=== PATIENT | female | born 1955 | race African-American/Black ===

== ENCOUNTER → 2020-07-08 | Outpatient (CLI) | payer MEDICARE, MEDICAID ==
[~2020-07-08] MED LIST: ASPI-1497 PO; ATOR20TA PO; BUDE6HFA INH; FLUT16SP15 BOTHNSTRLS; FLUT1DIS3 IH; FURO-152 PO; METF-414 PO; POTA10TA11 PO; VALS160T28 PO
== END | disposition home or self-care (01) ==
LOC: LAB 11:16
PROVIDERS: ATTEND Ophthalmology
DX: Z01.812 Encounter for preprocedural laboratory examination (principal); Z20.822 Contact with and (suspected) exposure to COVID-19
CPT/HCPCS: 87426

== ENCOUNTER 2020-07-09 07:42 | Day surgery (SDC) | payer MEDICARE, MEDICAID ==
[~2020-07-09] VITALS: Ht 157.5 cm; Wt 90.7 kg
[2020-07-09] MEDS ORDERED: PHENYLEPHRINE HCL 10% OPHTH DROPS 5ML LEFTEYE ONE (07:50)
[2020-07-09] MEDS ORDERED: TROPICAMIDE 1% OPHTH DROPS 15ML LEFTEYE ONE (07:50)
[2020-07-09] MEDS ORDERED: CYCLOPENTOLATE HCL 1% OPHTH DROPS 2ML LEFTEYE ONE (07:50)
[2020-07-09] MEDS ORDERED: HYDROMORPHONE HCL/PF 2MG/ML CPJ IV PRN ×2 (09:00→10:00)
[2020-07-09] MEDS ORDERED: LIDOCAINE HCL 2%/EPINEPHRINE 1:100,000 20 ML VIAL INFIL ONE (09:00)
[2020-07-09] MEDS ORDERED: MEPERIDINE HCL/PF 25MG/ML CPJ IV PRN ×2 (09:00→10:00)
[2020-07-09] MEDS ORDERED: LIDOCAINE HCL/PF 2% 20 MG/ML 10ML VIAL ONE (09:00)
[2020-07-09] MEDS ORDERED: BUPIVACAINE HCL/PF 0.75% (7.5MG/ML) 10ML ONE (09:00)
[2020-07-09] MEDS ORDERED: PREDNISOLONE ACETATE 1% OPHTH DROPS 5ML ONE (09:00)
[2020-07-09] MEDS ORDERED: TETRACAINE 0.5% OPHTH DROPS 4ML ONE (09:00)
[2020-07-09] MEDS ORDERED: ONDANSETRON HCL 4MG/2ML INJ IV PRN ×2 (09:00→10:00)
[2020-07-09] MEDS ORDERED: TROPICAMIDE 1% OPHTH DROPS 15ML ONE (09:00)
[2020-07-09] MEDS ORDERED: BALANCED SALT IRRIG SOLN 15ML ONE (09:00)
[2020-07-09] MEDS ORDERED: LABETALOL 5MG/ML SYR 20 MG/4 ML SYRINGE IV PRN ×2 (09:00→10:00)
[2020-07-09] MEDS ORDERED: PHENYLEPHRINE HCL 10% OPHTH DROPS 5ML ONE (09:00)
[2020-07-09] MEDS ORDERED: BALANCED SALT IRRIG SOLN COMB1 500ML OP SCH (09:30)
[2020-07-09] MEDS ORDERED: HYALURONATE SODIUM 10 MG/ML 0.55ML SYRINGE IO ONE ×3 (09:39→15:13)
[2020-07-09] MEDS ORDERED: MIDAZOLAM HCL 2 MG/2 ML VIAL ONE (09:52)
[2020-07-09] MEDS ORDERED: FENTANYL CITRATE/PF 50MCG/ML 2ML VIAL ONE (09:52)
[2020-07-09] MEDS ORDERED: PROPOFOL 200MG/20ML VIAL IV ONE (10:28)
[2020-07-09] MEDS ORDERED: POTA10TA11 PO (11:04)
[2020-07-09] MEDS ORDERED: BUDE6HFA INH (11:04)
[2020-07-09] MEDS ORDERED: ASPI-1497 PO (11:04)
[2020-07-09] MEDS ORDERED: ATOR20TA PO (11:04)
[2020-07-09] MEDS ORDERED: FURO-152 PO (11:04)
[2020-07-09] MEDS ORDERED: VALS160T28 PO (11:04)
[2020-07-09] MEDS ORDERED: FLUT1DIS3 IH (11:04)
[2020-07-09] MEDS ORDERED: FLUT16SP15 BOTHNSTRLS (11:04)
[2020-07-09] MEDS ORDERED: METF-414 PO (11:04)
== END 2020-07-09 12:30 | disposition home or self-care (01) ==
LOC: OR 07:42
PROVIDERS: ATTEND Ophthalmology
DX: E11.36 Type 2 diabetes mellitus with diabetic cataract (principal); H25.89 Other age-related cataract; E78.00 Pure hypercholesterolemia, unspecified; I10 Essential (primary) hypertension; Z86.73 Personal history of transient ischemic attack (TIA), and cerebral infarction without residual deficits; Z79.82 Long term (current) use of aspirin; Z79.84 Long term (current) use of oral hypoglycemic drugs; Z88.5 Allergy status to narcotic agent; Z98.890 Other specified postprocedural states
CPT/HCPCS: 66982; 82962; C1893; J2250; J2704; J3010; J3490; V2632